=== PATIENT | male | born 1980 | race Caucasian/White ===

== ENCOUNTER 2023-02-07 00:52 | Emergency (ER) | payer OTHER, SELFPAY ==
--- NOTE | 2023-02-07 | ECG_ITS ---
Test Reason : CHEST PAIN Blood Pressure : / mmHG Vent. Rate : 083 BPM Atrial Rate : 083 BPM P-R Int : 162 ms QRS Dur : 096 ms QT Int : 348 ms P-R-T Axes : 060 083 036 degrees QTc Int : 408 ms Normal sinus rhythm Normal ECG When compared with ECG of 03-FEB-2008 07:59, No significant change was found Referred By: Generic ED Physician Electronically Signed By:Caden Javed
[2023-02-07 01:08] VITALS: BP 154/106; PULSE 89; RESP 16; TEMP 36.5; O2SAT 97; BMI 28.3
[2023-02-07 01:18] LABS: Hematocrit 51.9 % (42.0-52.0); Hemoglobin 17.7 g/dl (14.0-18.0); Mean Corpuscular HGB Conc 34.1 g/dl (31.0-36.0); Mean Corpuscular Hemoglobin 30.5 pg (27.0-33.0); Mean Corpuscular Volume 89.3 fL (80.0-98.0); Mean Platelet Volume 8.8 fL (9.4-12.4); Platelet Count 267 X10*3/uL (160-400); Red Blood Count 5.81 X10*6/uL (4.60-5.80); Red Cell Distribution Width 12.8 % (11.0-16.0); White Blood Count 8.2 X10*3/uL (4.8-10.8)
[2023-02-07 01:34] LABS: Alanine Aminotransferase 76 U/L (0-40); Albumin Level 4.5 g/dL (3.5-5.0); Alkaline Phosphatase 46 U/L (39-117); Anion Gap 16 (12-20); Aspartate Amino Transferase 41 U/L (5-37); Bilirubin Total 0.5 mg/dL (0.0-1.0); Blood Urea Nitrogen 18 mg/dL (9-16); Calcium 9.8 mg/dL (8.4-10.2); Carbon Dioxide 30 mmol/L (22-29); Chloride 98 mmol/L (96-108); Creatinine Clr Calc Pharmacy 65.9; Estimated Glomerular Filt Rate 56; Glucose Random 103 mg/dL (60-115); Potassium 4.2 mmol/L (3.3-5.1); Sodium 140 mmol/L (135-145)
--- NOTE | 2023-02-07 01:43 | ED_ITS ---
HPI - Chest Pain General Chief Complaint: Chest Pain Stated Complaint: CP Time Seen by Provider: 02/07/23 01:42 Source: patient Mode of arrival: ambulatory Limitations: no limitations History of Present Illness HPI narrative: Patient history of hypertension history of anxiety recently had COVID 2 1/2 weeks ago, asymptomatic now , went to sleep woke up at 23:00 with right pain right chest pain radiating to the left does have anxiety but does not feel like anxiety at this time no shortness of breath no cough pain is aching in character with deep feeling no correlation with deep breath no history of cocaine use nonsmoker never had similar pain, pain is coming and going Related Data Home Medications Medication Instructions Recorded Confirmed lisinopril 20 1 tab PO DAILY 02/07/23 02/07/23 mg-hydrochlorothiazide 25 mg tablet montelukast 10 mg tablet 10 mg PO DAILY 02/07/23 02/07/23 rosuvastatin 10 mg tablet 10 mg PO DAILY 02/07/23 02/07/23 Allergies Allergy/AdvReac Type Severity Reaction Status Date / Time No Known Allergies Allergy Unverified 07/21/20 15:10 [No Known Allergies*] Review of Systems Review of Systems: Constitutional : No Weight loss, No Fever, No Chills ENT/Mouth : No sore throat, No Rhinorrhea Eyes: No Eye Pain, No Swelling Cardiovascular : No Chest Pain, no palpitations Respiratory : No Cough, No Sputum, no shortness of breath Gastrointestinal : no Nausea, No Vomiting, No Diarrhea, No abdominal Pain, no black stools Genitourinary : No Dysuria, No Urinary Frequency Musculoskeletal : No joint pain, No Myalgias, No Joint Swelling Skin : No Skin Lesions, No rash Neuro : No Weakness, No Numbness, No Dizziness, No Headache Psych : No Anxiety/Panic, No Depression Heme/Lymph: No Bruising, No Lymphadenopathy Endocrine : No Polyuria, No Polydipsia All other systems reviewed and are negative Yes all other systems are reviewed and are negative [facility] Past Medical History Medical History (Updated 02/07/23 @ 03:34 by Long King MD) Hyperlipidemia Hypertension Social History Social History Smoked in Last 30 Days: No Use of substances other than those prescribed or required for medical reasons: No Advance Directives: No Advance Directives Information Provided: No Physical Exam Vital Signs: Vital Signs: Last Vital Signs Temp 97.7 F 02/07/23 02:50 Pulse 105 H 02/07/23 03:33 Resp 20 02/07/23 03:33 BP 137/77 02/07/23 03:33 Pulse Ox 98 02/07/23 03:33 O2 Del Method Nasal Cannula 02/07/23 03:33 O2 Flow Rate 2 02/07/23 03:33 BMI result Body Mass Index 28.3 Appearance: Alert. Oriented X3. No acute distress. Eyes: PERRLA, no pallor ENT: Pharynx normal. Oral Mucosa moist Neck: Normal inspection. Neck supple. CVS: Normal heart rate and rhythm. Pulses normal no murmur/rubs/gallops. Respiratory: No respiratory distress. Equal air entry bilateral, no wheezing/rales/rhonchi Abdomen: Soft and nontender. Bowel sounds are present, no mass palpable, no CVA tenderness Skin: Skin warm and dry. Normal skin color. Normal skin turgor. Extremities: No lower extremity edema. No calf tenderness Neuro: Oriented X 3. No motor deficit. Medications Administered Generic Name Dose Route Start Last Admin Trade Name Freq PRN Reason Stop Dose Admin Nitroglycerin/Dextrose 100 mg in 250 mls @ 0 mls/hr 02/07/23 03:30 02/07/23 03:28 Nitroglycerin/D5w IVCONT 20 mcg/min .Q0M JESUS 3 mls/hr Administration Protocol Per Protocol Discontinued Medications Generic Name Dose Route Start Last Admin Trade Name Freq PRN Reason Stop Dose Admin Aspirin 162 mg 02/07/23 02:00 02/07/23 02:29 Aspirin 81 Mg Tab.Chew PO 02/07/23 02:01 162 mg ONCE ONE Administration Atorvastatin Calcium 80 mg 02/07/23 03:19 02/07/23 03:23 Atorvastatin Calcium 80 Mg Tablet PO 02/07/23 03:20 80 mg ONCE ONE Administration Heparin Sodium (Porcine) 5,000 unit 02/07/23 03:19 02/07/23 03:23 Heparin Sodium,Porcine 5,000 Unit/Ml Vial IVPUSH 02/07/23 03:20 5,000 unit ONCE ONE Administration Lorazepam 1 mg 02/07/23 02:00 02/07/23 02:29 Lorazepam 1 Mg Tablet PO 02/07/23 02:01 1 mg ONCE ONE Administration Ticagrelor 180 mg 02/07/23 03:19 02/07/23 03:23 Ticagrelor 90 Mg Tablet PO 02/07/23 03:20 180 mg ONCE ONE Administration Medical Decision Making Medical Decision Making [facility] Narrative: Patient with chest pain with history of hypertension hyperlipidemia nonsmoker no substance abuse initial EKG was normal sinus rhythm no acute EKG changes patient continued to have pain off and on repeat EKG done showed ST elevation V1 to V6. Case discussed with Dr. Reed at [facility] elevator builder accepted the patient for cardiac catheterization Patient received 5000 units of heparin, 162 mg of aspirin, atorvastatin 80 mg, Brilinta 180 mg and started on nitroglycerin drip Differential Diagnosis STEMI/non-STEMI/ACS/PE Lab Data [facility] Lab Attestation statement: I reviewed the patient's lab results. 02/07/23 01:12 02/07/23 01:12 Labs: Lab Results 02/07/23 02/07/23 02/07/23 Range/Units 01:12 01:12 01:12 WBC 8.2 (4.8-10.8) X10*3/uL RBC 5.81 H (4.60-5.80) X10*6/uL Hgb 17.7 (14.0-18.0) g/dl Hct 51.9 (42.0-52.0) % MCV 89.3 (80.0-98.0) fL MCH 30.5 (27.0-33.0) pg MCHC 34.1 (31.0-36.0) g/dl RDW 12.8 (11.0-16.0) % Plt Count 267 (160-400) X10*3/uL MPV 8.8 L (9.4-12.4) fL Absolute Nucleated RBC 0.000 (0.0-0.012) X10*3/uL Nucleated RBC % (auto) 0.0 (0.0-0.2) /100WBC D-Dimer High Sensitivty NG/ML Sodium 140 (135-145) mmol/L Potassium 4.2 (3.3-5.1) mmol/L Chloride 98 (96-108) mmol/L Carbon Dioxide 30 H (22-29) mmol/L Anion Gap 16 (12-20) BUN 18 H (9-16) mg/dL Creatinine 1.37 (0.5-1.4) mg/dL Estim Creat Clear Calc 65.9 Estimated GFR 56 POC Glucose (60-115) mg/dL Random Glucose 103 (60-115) mg/dL Calcium 9.8 (8.4-10.2) mg/dL Total Bilirubin 0.5 (0.0-1.0) mg/dL AST 41 H (5-37) U/L ALT 76 H (0-40) U/L Alkaline Phosphatase 46 (39-117) U/L Troponin I High Sens 29.0 (<3.5-35.0) ng/L Total Protein 7.0 (6.5-8.0) g/dL Albumin 4.5 (3.5-5.0) g/dL 02/07/23 02/07/23 Range/Units 03:12 03:23 WBC (4.8-10.8) X10*3/uL RBC (4.60-5.80) X10*6/uL Hgb (14.0-18.0) g/dl Hct (42.0-52.0) % MCV (80.0-98.0) fL MCH (27.0-33.0) pg MCHC (31.0-36.0) g/dl RDW (11.0-16.0) % Plt Count (160-400) X10*3/uL MPV (9.4-12.4) fL Absolute Nucleated RBC (0.0-0.012) X10*3/uL Nucleated RBC % (auto) (0.0-0.2) /100WBC D-Dimer High Sensitivty < 150 NG/ML Sodium (135-145) mmol/L Potassium (3.3-5.1) mmol/L Chloride (96-108) mmol/L Carbon Dioxide (22-29) mmol/L Anion Gap (12-20) BUN (9-16) mg/dL Creatinine (0.5-1.4) mg/dL Estim Creat Clear Calc Estimated GFR POC Glucose 108 (60-115) mg/dL Random Glucose (60-115) mg/dL Calcium (8.4-10.2) mg/dL Total Bilirubin (0.0-1.0) mg/dL AST (5-37) U/L ALT (0-40) U/L Alkaline Phosphatase (39-117) U/L Troponin I High Sens (<3.5-35.0) ng/L Total Protein (6.5-8.0) g/dL Albumin (3.5-5.0) g/dL Independent Interpretation I performed an independent interpretation of an: EKG (Repeat EKG showed sinus rhythm heart rate 79 beats per minute with ST elevation V1 to V6) Interpretation: Normal sinus rhythm heart rate 83 beats per minute normal intervals normal intervals impression normal EKG Discharge Plan Discharge Clinical Impression: ST elevation myocardial infarction (STEMI) Patient Disposition: [facility] Transfer Details: STEMI to bundle tier and labeler Prescriptions: No Action lisinopril-hydrochlorothiazide 20-25 mg tablet 1 tab PO DAILY montelukast 10 mg tablet 10 mg PO DAILY rosuvastatin 10 mg tablet 10 mg PO DAILY
[2023-02-07] MEDS: LORazepam 1 MG TABLET PO (02:29)
[2023-02-07] MEDS: Aspirin 81 MG TAB.CHEW 162 MG PO (02:29)
--- NOTE | 2023-02-07 02:39 | PC.NURSE ---
pt medicated according to mar. pt calm and cooperative resting on stretcher. pt educated on how to utilize call cunningham and bedside urinal.
[2023-02-07 02:50] VITALS: BP 121/88; PULSE 70; RESP 18; TEMP 36.5; O2SAT 98
--- NOTE | 2023-02-07 03:16 | ECG_ITS ---
Test Reason : CP Blood Pressure : / mmHG Vent. Rate : 079 BPM Atrial Rate : 079 BPM P-R Int : 156 ms QRS Dur : 100 ms QT Int : 344 ms P-R-T Axes : 064 098 034 degrees QTc Int : 394 ms Normal sinus rhythm with sinus arrhythmia Rightward axis Low voltage QRS ST elevation consider anterolateral injury or acute infarct ACUTE [place] / STEMI Abnormal ECG When compared with ECG of 07-FEB-2023 01:04, ST elevation now present in Anterior leads Referred By: Long King Electronically Signed By:Caden Javed
--- NOTE | 2023-02-07 03:21 | MHC.EDTECH ---
@[phone] [facility] STAT PAGER LINE CALLED @ DR OWENS REQUEST @[phone] JOAQUIN RHOADES CALLED FOR STEMI NANCY BELLO ANSWERS TAKES PT INFO THEN ASKS FOR INS, SAYS SHE WILL SEND SOMEONE OVER
[2023-02-07] MEDS: Atorvastatin Calcium 80 MG TABLET PO (03:23)
[2023-02-07] MEDS: Heparin Sodium,Porcine 5,000 UNIT/ML VIAL 5000 UNIT IVPUSH (03:23)
[2023-02-07] MEDS: Ticagrelor 90 MG TABLET 180 MG PO (03:23)
[2023-02-07 03:27] VITALS: BP 148/81; PULSE 108; RESP 15; O2SAT 97
[2023-02-07 03:28] VITALS: BP 148/81; PULSE 108
[2023-02-07] MEDS: Nitroglycerin/D5W 100 MG/250 ML INFUS..BTL IVCONT (03:28)
[2023-02-07 03:31] VITALS: BP 148/81; PULSE 107; RESP 18; O2SAT 97
[2023-02-07 03:32] LABS: Glucose, Whole Blood 108 mg/dL (60-115)
[2023-02-07 03:33] VITALS: BP 137/77; PULSE 105; RESP 20; O2SAT 98
[2023-02-07 03:33] LABS: D Dimer High Sensitivity < 150 NG/ML
--- NOTE | 2023-02-07 03:35 | MHC.EDTECH ---
@[id number] JOAQUIN HERE FOR TX TO [facility] PRESS AND BLOW MACHINE TENDER
[2023-02-07 03:42] LABS: Troponin-I High Sensitivity 164.6 ng/L (<3.5-35.0)
--- NOTE | 2023-02-07 03:42 | MHC.EDTECH ---
PT LEAVE [facility] @ THIS TIME WITH JOAQUIN ZIMMERMAN
[2023-02-07 03:47] LABS: COVID-19 Test Negative (Negative); IDNOW Serial# BCCEAD1C
[2023-02-07 03:48] LABS: Prothrombin Time > 320.0 SEC (10.0-13.1)
[2023-02-07 03:50] LABS: INTERNATIONAL NORM RATIO > 26.0 (0.9-1.1); Partial Thromboplastin Time > 200.0 SEC (26.0-36.4)
--- NOTE | 2023-02-07 03:56 | PC.NURSE ---
late entry- repeat ekg and labwork obtained by applied psychology chair. applied psychology chair and charge master coordinator notified this rn of ekg changes. applied psychology chair and charge master coordinator made dr ledezma aware of pt status. applied psychology chair, charge master coordinator, , and this rn at bedside at this time. bilateral IV placed 18 in R and L AC. pt medicated according to mar. nitroglycerin gtt started @ 20mcg/min. pt placed on 2 LPM NC for comfort. this rn performed med rec.
--- NOTE | 2023-02-07 04:13 | PC.NURSE ---
report given to ems by this rn and kiln charger. this rn contacted [facility] supervisor dental laboratory. RN to RN report given to richard becerril. pt in route to [facility] at this time
== END 2023-02-07 04:15 | disposition short-term general hospital (02) ==
PROVIDERS: Emergency Provider Internal Medicine
DX: I21.3 ST elevation (STEMI) myocardial infarction of unspecified site (principal); R07.89 Other chest pain; F41.9 Anxiety disorder, unspecified; Z20.822 Contact with and (suspected) exposure to COVID-19; Z20.828 Contact with and (suspected) exposure to other viral communicable diseases; Z79.899 Other long term (current) drug therapy
CPT/HCPCS: 36415; 80053; 82947; 84484; 85027; 85379; 85610; 85730; 87635; 93005; 96365; 96375; 99285; J1643

== ENCOUNTER 2024-12-07 21:25 | Emergency (ER) | payer BC, SELFPAY ==
[2024-12-07 22:11] VITALS: BP 145/101; PULSE 87; RESP 18; TEMP 36.6; O2SAT 94; BMI 30.8
--- NOTE | 2024-12-08 01:51 | ED_ITS ---
History of Present Illness General Chief Complaint: Epistaxis Stated Complaint: left side nose bleed/on blood thinner Time Seen by Provider: 12/08/24 01:39 Source: patient Mode of arrival: ambulatory Limitations: no limitations History of Present Illness HPI Narrative: Dr. Kacy Andrew Patient comes to the emergency room complaining of epistaxis intermittently for several hours. When patient arrived, he had a very mild left nostril bleed. By the time I saw the patient, the bleeding had stopped. Patient denies dizziness, no nasal pain. Patient denies any nose trauma. Related Data Home Medications ?Medication ?Instructions ?Recorded ?Confirmed lisinopril 20 1 tab PO DAILY 02/07/23 02/07/23 mg-hydrochlorothiazide 25 mg tablet montelukast 10 mg tablet 10 mg PO DAILY 02/07/23 02/07/23 rosuvastatin 10 mg tablet 10 mg PO DAILY 02/07/23 02/07/23 Allergies Allergy/AdvReac Type Severity Reaction Status Date / Time No Known Allergies Allergy Verified 12/07/24 22:17 [No Known Allergies*] Review of Systems Review of Systems: Constitutional : No Weight loss, No Fever, No Chills, No Night Sweats, No Fatigue, No Malaise ENT/Mouth : complaining of epistaxis, no Hearing loss, No Ear Pain, No Nasal Congestion, No Sinus Pain, No Hoarseness, No sore throat, No Rhinorrhea, No Swallowing Difficulty Eyes: No Eye Pain, No Swelling, No Redness, No Foreign Body, No Discharge, No Vision Changes Cardiovascular : No Chest Pain, No SOB, No Dyspnea on Exertion, No Orthopnea, No Edema, No Palpitations Respiratory : No Cough, No Sputum, No Wheezing, No Smoke Exposure, No Dyspnea Gastrointestinal : No Nausea, No Vomiting, No Diarrhea, No Constipation, No abdominal Pain, No Hematochezia, No Melena Genitourinary : no irregular bleeding, No Dysuria, No Urinary Frequency, No Hematuria, No Urinary Incontinence, No Urgency, No Flank Pain, No Urinary Flow Changes, No Hesitancy Musculoskeletal : No joint pain, No Myalgias, No Joint Swelling Skin : No Skin Lesions, No rash Neuro : No Weakness, No Numbness, No Paresthesias, No Loss of Consciousness, No Dizziness, No Headache Psych : No Anxiety/Panic, No Depression, No SI/HI/AH/VH, No Social Issues, Heme/Lymph: No Bruising, No Bleeding,No Lymphadenopathy Endocrine : No Polyuria, No Polydipsia, No Temperature Intolerance [facility] Past Medical History Medical History Hyperlipidemia Hypertension Social History Social History Smoked in Last 30 Days: No Use of substances other than those prescribed or required for medical reasons: No Advance Directives: No Advance Directives Information Provided: Yes Physical Exam Vital Signs: Vital Signs: Last Vital Signs Temp 97.9 F 12/07/24 22:11 Pulse 87 12/07/24 22:11 Resp 18 12/07/24 22:11 BP 145/101 H 12/07/24 22:11 Pulse Ox 94 12/07/24 22:11 O2 Del Method Room Air 12/07/24 22:11 BMI result Body Mass Index 30.8 Const: Other: Appearance: Alert. Oriented X3. No acute distress. Eyes: Pupils equal, round and reactive to light. ENT: Pharynx normal. Dry blood on the left nostril Neck: Normal inspection. Neck supple. No lymph nodes noted. No crepitus CVS: Normal heart rate and rhythm. Pulses normal. Normal S1 and S2 Respiratory: No respiratory distress. Breath sounds normal. No Wheezing. No rales Abdomen: Soft and nontender. No rigidity. No distention. Skin: Skin warm and dry. Normal skin color. Normal skin turgor. Extremities: No lower extremity edema. No Lacerations. No Rash Neuro: Oriented X 3. No motor deficit. No sensory deficit. Moving all extremities. No slurred speech. CN 2 through 12 grossly intact Psych: calm, cooperative, normal affect Medications Administered Discontinued Medications Generic Name Dose Route Start Last Admin Trade Name Freq PRN Reason Stop Dose Admin Oxymetazoline HCl 2 spray 12/08/24 01:49 12/08/24 02:21 Oxymetazoline Hcl 0.05 % Nasal 15 Ml Goodell NOSTRIL-B 12/08/24 01:50 2 spray ONCE ONE Administration Medical Decision Making Medical Decision Making MDM Narrative: Patient's left nostril was sprayed with Afrin. No active bleeding. Patient requested catheterization. However, at this time there is no active source of bleeding. I discussed with the patient that the next step is a rhino rocket if he continues bleeding. Patient agrees plan. However, this time, rhino rocket is not indicated Patient's nose was sprayed and packed with gauze soaked in Afrin. Epistaxis resolved Discharge Plan Discharge Clinical Impression: Epistaxis Patient Disposition: Home, Self-Care Instructions: Nosebleed (ED) Additional Instructions: Please follow-up with your primary care physician tomorrow. If you have any worsening or new symptoms, please return to the emergency room or call 911 Prescriptions: No Action lisinopril-hydrochlorothiazide 20-25 mg tablet 1 tab PO DAILY montelukast 10 mg tablet 10 mg PO DAILY rosuvastatin 10 mg tablet 10 mg PO DAILY Print Language: Polish
[2024-12-08] MEDS: Oxymetazoline HCl 0.05 % Nasal 15 ML SPRAY 2 SPRAY NOSTRIL-B (02:21)
[2024-12-08 03:35] VITALS: BP 136/85; PULSE 84; RESP 18; TEMP 36.5; O2SAT 96
== END 2024-12-08 03:10 | disposition home or self-care (01) ==
PROVIDERS: Emergency Provider Emergency Medicine
DX: R04.0 Epistaxis (principal); Z79.01 Long term (current) use of anticoagulants; Z79.899 Other long term (current) drug therapy
CPT/HCPCS: 99283; 99284